=== PATIENT | female | born 1955 | race African-American/Black ===

== ENCOUNTER 2016-10-03 00:39 | Inpatient (IN) | payer BC, OTHER ==
[2016-10-03] VITALS (76 sets, daily range): BP systolic 85–171; BP diastolic 49–103
[~2016-10-03] VITALS: Ht 167.6 cm; Wt 108.0 kg
[2016-10-03] MEDS ORDERED: SUCCINYLCHOLINE CHLORIDE 200MG/10ML VIAL IV ONE ×2 (00:45→13:54)
[2016-10-03] MEDS ORDERED: ETOMIDATE 2MG/ML 10ML VIAL IV ONE ×2 (00:45→13:54)
[2016-10-03] MEDS ORDERED: FUROSEMIDE 40MG/4ML VIAL IV STA (00:45)
[2016-10-03] MEDS ORDERED: PROPOFOL 10MG/ML 100ML 100 ML IV ONE ×2 (00:45→04:00)
[2016-10-03 01:42] LABS: BG BASE EXCESS -2.5 mmol/L (-2.0-2.0); BG CARBOXYHEMOGLOBIN 0.7 % (0.5-1.5); BG DEOXYHEMOGLOBIN 3.1 % (0.0-5.0); BG FRACTION INSPIRED OXYGEN 50; BG METHEMOGLOBIN 0.3 % (0.0-1.5); BG OXYGEN SATURATION 96.9 % (92.0-98.5); BG OXYHEMOGLOBIN 95.9 % (94.0-97.0); BG PCO2 61.3 mmHg (35.0-45.0); BG PH 7.245 (7.350-7.450); BG SAMPLE SITE RIGHT RADIAL; BG TIDAL VOLUME(mL) 600 mL; BG TOTAL HEMOGLOBIN 13.8 g/dL (12.0-18.0); BG VENT MODE VENT - A/C; BG VENT RATE 12 set
[2016-10-03 01:42] LABS: BASOPHILS % 0.8 % (0.0-2.0); EOSINOPHILS % 2.6 % (0.0-5.0); HEMATOCRIT. 39.1 % (36.0-48.0); HEMOGLOBIN. 13.3 g/dL (12.0-16.0); LYMPHOCYTES % 19.1 % (20.0-50.0); MEAN CORPUSCULAR HEMOGLOBIN 29.6 pg (28.0-32.0); MEAN CORPUSCULAR HGB CONC 34.1 g/dL (31.0-37.0); MEAN CORPUSCULAR VOLUME 86.9 fL (81.0-99.0); MEAN PLATELET VOLUME 10.4 fl (7.4-10.4); MONOCYTES % 5.4 % (2.0-8.0); NEUTROPHILS % 72.1 % (40.0-76.0); PLATELET 234 x1000/uL (130-400); RED CELL DISTRIBUTION WIDTH 14.5 % (11.6-14.6); WHITE BLOOD COUNT 9.6 x1000/uL (4.5-11.0)
[2016-10-03 01:46] LABS: PROTHROMBIN TIME 10.1 sec
[2016-10-03 01:56] LABS: ALANINE AMINOTRANSFERASE 18 IU/L (13-61); ALBUMIN 2.9 g/dL (3.4-5.0); ANION GAP 10; CALCIUM 8.1 mg/dL (8.5-10.1); CARBON DIOXIDE 28 mEq/L (21-32); CHLORIDE 102 mEq/L (98-107); INDEX HEMOLYSI 1 (1-3); INDEX ICTERIC 1 (1-4); INDEX LIPEMIC 1 (1-3); NT PRO B-TYPE NATRIURETIC PEP 2200 pg/mL (5-125); TROPONIN I < 0.02 ng/mL (0.00-0.04); UREA NITROGEN BLOOD 23 mg/dL (7-21); eGFR > 60 mL/min (>60)
[2016-10-03] MEDS ORDERED: ACETAMINOPHEN 650MG SUPP PR PRN (02:00)
[2016-10-03] MEDS ORDERED: MAGNESIUM/ALUMINUM HYDROXIDE/SIMETHICONE 30ML UDC PO PRN (02:00)
[2016-10-03] MEDS ORDERED: DOCUSATE SODIUM 100MG CAPSULE PO PRN (02:00)
[2016-10-03] MEDS ORDERED: ACETAMINOPHEN 325MG TABLET PO PRN (02:00)
[2016-10-03] MEDS ORDERED: CLONIDINE 0.1MG TABLET PO PRN (02:00)
[2016-10-03] MEDS ORDERED: ACETAMINOPHEN 650MG/20.3ML UDC GT PRN (02:00)
[2016-10-03] MEDS ORDERED: NA PHOS,M-B/NA PHOS,DI-BA ENEMA 118ML PR PRN (02:00)
[2016-10-03] MEDS ORDERED: DIPHENHYDRAMINE 50MG/ML VIAL IV PRN (02:00)
[2016-10-03] MEDS ORDERED: LORAZEPAM 2MG/ML CPJ IV PRN (02:00)
[2016-10-03] MEDS ORDERED: GUAIFENESIN 200MG/10ML SUGAR FREE UDC PO PRN (02:00)
[2016-10-03] MEDS ORDERED: IPRATROPIUM/ALBUTEROL 0.5-3(2.5)MG/3ML NEB INH PRN (02:00)
[2016-10-03] MEDS ORDERED: ONDANSETRON HCL 4MG/2ML VIAL IV PRN (02:00)
[2016-10-03] MEDS ORDERED: DEXTROSE 50% WATER 50ML SYRINGE IV PRN (02:15)
[2016-10-03 02:36] LABS: THYROID STIMULATING HORMONE 6.4 uIU/mL (0.36-3.74)
[2016-10-03] MEDS: LEVOFLOXACIN 500MG PREMIX 100 ML IV SCH (05:33)
[2016-10-03] MEDS: BLOOD SUGAR DIAGNOSTIC STRIP TEST SCH ×4 (05:36→23:54)
[2016-10-03] MEDS: SODIUM CHLORIDE 0.9% INJ 3ML FLUSH IVF SCH ×3 (05:45→21:45)
[2016-10-03] MEDS: INSULIN LISPRO 100 UNITS/ML SUBCUT SCH ×4 (05:49→23:52)
[2016-10-03 05:56] LABS: CLARITY URINE CLEAR (CLEAR); COLOR URINE YELLOW (YELLOW); GLUCOSE URINE NEGATIVE (NEGATIVE); KETONES URINE NEGATIVE (NEGATIVE); LEUKOCYTE ESTERASE URINE NEGATIVE (NEGATIVE); NITRITE URINE NEGATIVE (NEGATIVE); OCCULT BLOOD URINE TRACE (NEGATIVE); PROTEIN URINE 1+ (NEGATIVE); SPECIFIC GRAVITY URINE 1.016 (1.005-1.030); UROBILINOGEN URINE 0.2 E.U./dL (0.2-1.0)
[2016-10-03] MEDS ORDERED: METHYLPREDNISOLONE SOD SUCC 125 MG/2 ML VIAL IV SCH (06:00)
[2016-10-03] MEDS ORDERED: IPRATROPIUM/ALBUTEROL 0.5-3(2.5)MG/3ML NEB INH SCH (06:00)
[2016-10-03] MEDS ORDERED: VANCOMYCIN 2,000 MG in DEXT 5% WATER 500 ML IV NR (06:00)
[2016-10-03 06:06] LABS: TROPONIN I 0.04 ng/mL (0.00-0.04)
[2016-10-03 06:12] LABS: *AMPHETAMINES SCREEN URINE NEGATIVE (NEGATIVE); *BARBITURATES SCREEN URINE NEGATIVE (NEGATIVE); *BENZODIAZEPINES SCREEN URINE NEGATIVE (NEGATIVE); *COCAINE SCREEN URINE NEGATIVE (NEGATIVE); CANNABINOID URINE SCREEN NEGATIVE (NEGATIVE); ECSTASY MDMA SCREEN URINE NEGATIVE (NEGATIVE); METHADONE URINE SCREEN NEGATIVE (NEGATIVE); OPIATES URINE SCREEN NEGATIVE (NEGATIVE); PHENCYCLIDINE URINE SCREEN NEGATIVE (NEGATIVE)
[2016-10-03 06:40] LABS: SQUAMOUS EPITHELIAL CELL URINE NONE SEEN /lpf (RARE/1+)
[2016-10-03 06:44] LABS: RBC URINE 0-2 /hpf (0-2)
[2016-10-03 06:45] LABS: BACTERIA URINE NONE SEEN
[2016-10-03 07:14] LABS: BG BASE EXCESS 2.5 mmol/L (-2.0-2.0); BG CARBOXYHEMOGLOBIN 0.4 % (0.5-1.5); BG DEOXYHEMOGLOBIN 1.3 % (0.0-5.0); BG METHEMOGLOBIN 0.2 % (0.0-1.5); BG OXYGEN SATURATION 98.7 % (92.0-98.5); BG OXYHEMOGLOBIN 98.1 % (94.0-97.0); BG PH 7.511 (7.350-7.450); BG PO2 138.8 mmHg (75.0-100.0); BG SAMPLE SITE RIGHT RADIAL; BG TIDAL VOLUME(mL) 600 mL; BG TOTAL HEMOGLOBIN 12.8 g/dL (12.0-18.0); BG VENT MODE VENT - A/C; BG VENT RATE 14 set
[2016-10-03] MEDS: BUDESONIDE 0.5MG/2ML NEB HHN SCH ×2 (07:48→20:40)
[2016-10-03] MEDS: IPRATROPIUM/ALBUTEROL 0.5-3(2.5)MG/3ML NEB HHN SCH ×5 (07:48→23:57)
[2016-10-03] MEDS ORDERED: BLOOD SUGAR DIAGNOSTIC STRIP TEST SCH (07:50)
[2016-10-03] MEDS ORDERED: POTASSIUM CHLORIDE INJ 40 MEQ in DEXT 5% WATER 500 ML IV NR (08:00)
[2016-10-03] MEDS: HYDROMORPHONE HCL/PF 2MG/ML CPJ IV PRN ×4 (08:05→21:47)
[2016-10-03] MEDS: ENOXAPARIN 30MG/0.3ML SYR SUBCUT SCH ×2 (08:08→21:03)
[2016-10-03] MEDS ORDERED: INSULIN LISPRO 100 UNITS/ML SUBCUT SCH ×2 (08:20→13:20)
[2016-10-03] MEDS ORDERED: FUROSEMIDE 40MG/4ML VIAL IV SCH ×2 (09:00→17:00)
[2016-10-03] MEDS: PROPOFOL 10MG/ML 100ML 100 ML IV PRN ×4 (09:34→21:46)
[2016-10-03] MEDS: METOPROLOL TARTRATE 50MG TABLET PO SCH ×2 (10:42→21:00)
[2016-10-03] MEDS: ASPIRIN 81MG TABLET PO SCH (10:43)
[2016-10-03] MEDS ORDERED: ENOXAPARIN 30MG/0.3ML SYR SUBCUT SCH (11:00)
[2016-10-03] MEDS: PANTOPRAZOLE SODIUM 40 MG/VIAL IV SCH (11:45)
[2016-10-03 11:55] LABS: MAGNESIUM 1.4 mg/dL (1.8-2.4); T4 FREE 1.28 ng/dL (0.76-1.46)
[2016-10-03] MEDS ORDERED: MAGNESIUM 2 G PREMIX 50 ML IV NR (14:00)
[2016-10-03] MEDS ORDERED: IOHEXOL-350 100 ML BOTTLE ONE (14:10)
[2016-10-03] MEDS ORDERED: SODIUM CHLORIDE 0.9% 10ML VIAL ONE (14:10)
[2016-10-03 15:59] LABS: CREATINE KINASE MB FRACTION 0.9 ng/mL (0.5-3.6); TROPONIN I 0.03 ng/mL (0.00-0.04)
[2016-10-03] MEDS ORDERED: VANCOMYCIN 1 G PREMIX 200 ML IV SCH (23:00)
[2016-10-04] VITALS (84 sets, daily range): BP systolic 93–161; BP diastolic 31–110
[2016-10-04] MEDS: IPRATROPIUM/ALBUTEROL 0.5-3(2.5)MG/3ML NEB HHN SCH ×3 (04:19→20:58)
[2016-10-04] MEDS: PROPOFOL 10MG/ML 100ML 100 ML IV PRN ×3 (04:24→09:36)
[2016-10-04] MEDS: LEVOFLOXACIN 500MG PREMIX 100 ML IV SCH (04:56)
[2016-10-04] MEDS: HYDROMORPHONE HCL/PF 2MG/ML CPJ IV PRN ×2 (04:57→08:33)
[2016-10-04] MEDS: BLOOD SUGAR DIAGNOSTIC STRIP TEST SCH ×4 (05:21→21:53)
[2016-10-04] MEDS: INSULIN LISPRO 100 UNITS/ML SUBCUT SCH ×4 (05:33→21:50)
[2016-10-04 05:38] LABS: BASOPHILS % 0.3 % (0.0-2.0); EOSINOPHILS % 0.3 % (0.0-5.0); HEMATOCRIT. 37.2 % (36.0-48.0); HEMOGLOBIN. 12.6 g/dL (12.0-16.0); LYMPHOCYTES % 13.7 % (20.0-50.0); MEAN CORPUSCULAR HEMOGLOBIN 29.4 pg (28.0-32.0); MEAN CORPUSCULAR HGB CONC 33.8 g/dL (31.0-37.0); MEAN PLATELET VOLUME 10.7 fl (7.4-10.4); MONOCYTES % 10.4 % (2.0-8.0); NEUTROPHILS % 75.3 % (40.0-76.0); PLATELET 221 x1000/uL (130-400); RED BLOOD CELL COUNT 4.28 mill/uL (4.2-5.4); RED CELL DISTRIBUTION WIDTH 14.2 % (11.6-14.6)
[2016-10-04 05:55] LABS: ALANINE AMINOTRANSFERASE 19 IU/L (13-61); ALBUMIN 2.9 g/dL (3.4-5.0); ANION GAP 16; BILIRUBIN DIRECT 0.1 mg/dL (0.0-0.2); CALCIUM 9.4 mg/dL (8.5-10.1); CARBON DIOXIDE 32 mEq/L (21-32); CHLORIDE 98 mEq/L (98-107); CREATINE KINASE MB FRACTION 0.7 ng/mL (0.5-3.6); HDL CHOLESTEROL 71 mg/dL (40-59); INDEX HEMOLYSI 1 (1-3); INDEX ICTERIC 1 (1-4); INDEX LIPEMIC 1 (1-3); LDL CHOLESTEROL 86 mg/dL (5-100); MAGNESIUM 2.3 mg/dL (1.8-2.4); TRIGLYCERIDE 89 mg/dL (0-150); TROPONIN I 0.03 ng/mL (0.00-0.04); UREA NITROGEN BLOOD 27 mg/dL (7-21); eGFR 37 mL/min (>60)
[2016-10-04] MEDS ORDERED: INSULIN LISPRO 100 UNITS/ML SUBCUT SCH (06:00)
[2016-10-04] MEDS ORDERED: VANCOMYCIN 1500MG in DEXTROSE 5% WATER 250ML IV SCH (06:00)
[2016-10-04 07:12] LABS: BG BASE EXCESS 2.9 mmol/L (-2.0-2.0); BG CARBOXYHEMOGLOBIN 0.1 % (0.5-1.5); BG DEOXYHEMOGLOBIN 2.1 % (0.0-5.0); BG FRACTION INSPIRED OXYGEN 40; BG HCO3 ACT 28.3 mmol/L (22.0-26.0); BG METHEMOGLOBIN 1.1 % (0.0-1.5); BG OXYGEN SATURATION 97.9 % (92.0-98.5); BG OXYHEMOGLOBIN 96.7 % (94.0-97.0); BG PCO2 46.3 mmHg (35.0-45.0); BG PH 7.404 (7.350-7.450); BG PO2 134.6 mmHg (75.0-100.0); BG SAMPLE SITE RIGHT RADIAL; BG TIDAL VOLUME(mL) 550 mL; BG TOTAL HEMOGLOBIN 14.3 g/dL (12.0-18.0); BG VENT MODE VENT - A/C; BG VENT RATE 10 set
[2016-10-04] MEDS: METHYLPREDNISOLONE SOD SUCC 40 MG/ML VIAL IV SCH (08:17)
[2016-10-04] MEDS: PANTOPRAZOLE SODIUM 40 MG/VIAL IV SCH (08:17)
[2016-10-04] MEDS: METOPROLOL TARTRATE 50MG TABLET PO SCH ×2 (08:18→21:43)
[2016-10-04] MEDS: ASPIRIN 81MG TABLET PO SCH (08:18)
[2016-10-04] MEDS: ENOXAPARIN 30MG/0.3ML SYR SUBCUT SCH ×2 (08:21→21:41)
[2016-10-04] MEDS: BUDESONIDE 0.5MG/2ML NEB HHN SCH ×2 (09:49→20:58)
[2016-10-04] MEDS: FUROSEMIDE 40MG/4ML VIAL IV SCH (10:44)
[2016-10-04] MEDS ORDERED: POTASSIUM CHLORIDE INJ 40 MEQ in DEXT 5% WATER 250 ML IV NR (11:00)
[2016-10-04 12:16] LABS: BG BASE EXCESS 3.8 mmol/L (-2.0-2.0); BG CARBOXYHEMOGLOBIN 0.6 % (0.5-1.5); BG DEOXYHEMOGLOBIN 1.8 % (0.0-5.0); BG FRACTION INSPIRED OXYGEN 40; BG HCO3 ACT 30.9 mmol/L (22.0-26.0); BG METHEMOGLOBIN 0.4 % (0.0-1.5); BG OXYGEN SATURATION 98.2 % (92.0-98.5); BG OXYHEMOGLOBIN 97.2 % (94.0-97.0); BG PCO2 57.7 mmHg (35.0-45.0); BG PH 7.347 (7.350-7.450); BG PO2 132.7 mmHg (75.0-100.0); BG PRESSURE SUPPORT 6; BG SAMPLE SITE LEFT RADIAL; BG TOTAL HEMOGLOBIN 13.6 g/dL (12.0-18.0); BG VENT MODE VENT - CPAP
[2016-10-04 13:31] LABS: BG BASE EXCESS 2.5 mmol/L (-2.0-2.0); BG DEOXYHEMOGLOBIN 0.9 % (0.0-5.0); BG FRACTION INSPIRED OXYGEN 40; BG HCO3 ACT 29.4 mmol/L (22.0-26.0); BG METHEMOGLOBIN 0.4 % (0.0-1.5); BG OXYGEN SATURATION 99.1 % (92.0-98.5); BG OXYHEMOGLOBIN 98.7 % (94.0-97.0); BG PCO2 55.2 mmHg (35.0-45.0); BG PH 7.344 (7.350-7.450); BG PO2 230.4 mmHg (75.0-100.0); BG PRESSURE SUPPORT 6; BG SAMPLE SITE LEFT RADIAL; BG TOTAL HEMOGLOBIN 13.5 g/dL (12.0-18.0); BG VENT MODE VENT - CPAP
[2016-10-04] MEDS: SODIUM CHLORIDE 0.9% INJ 3ML FLUSH IVF SCH ×2 (14:00→21:54)
[2016-10-05] VITALS (23 sets, daily range): BP systolic 109–157; BP diastolic 51–83
[2016-10-05] MEDS: IPRATROPIUM/ALBUTEROL 0.5-3(2.5)MG/3ML NEB HHN SCH ×6 (00:24→21:37)
[2016-10-05] MEDS ORDERED: LIDOCAINE HCL/PF 1% 2ML VIAL ONE (05:00)
[2016-10-05] MEDS: SODIUM CHLORIDE 0.9% INJ 3ML FLUSH IVF SCH ×3 (05:53→21:37)
[2016-10-05 07:44] LABS: BG BASE EXCESS 5.2 mmol/L (-2.0-2.0); BG CARBOXYHEMOGLOBIN 0.4 % (0.5-1.5); BG DEOXYHEMOGLOBIN 7.4 % (0.0-5.0); BG FRACTION INSPIRED OXYGEN 21; BG HCO3 ACT 30.8 mmol/L (22.0-26.0); BG METHEMOGLOBIN 0.1 % (0.0-1.5); BG OXYGEN SATURATION 92.6 % (92.0-98.5); BG OXYHEMOGLOBIN 92.1 % (94.0-97.0); BG PCO2 49.3 mmHg (35.0-45.0); BG PH 7.414 (7.350-7.450); BG PO2 66.8 mmHg (75.0-100.0); BG SAMPLE SITE RIGHT BRACHIAL; BG TOTAL HEMOGLOBIN 13.3 g/dL (12.0-18.0); BG VENT MODE ROOM AIR
[2016-10-05] MEDS: BUDESONIDE 0.5MG/2ML NEB HHN SCH ×2 (07:50→21:37)
[2016-10-05] MEDS: INSULIN LISPRO 100 UNITS/ML SUBCUT SCH ×4 (07:50→21:29)
[2016-10-05] MEDS: BLOOD SUGAR DIAGNOSTIC STRIP TEST SCH ×4 (07:50→21:30)
[2016-10-05] MEDS ORDERED: LEVOFLOXACIN 500MG PREMIX 100 ML IV SCH (08:00)
[2016-10-05] MEDS: METOPROLOL TARTRATE 50MG TABLET PO SCH ×2 (09:05→21:29)
[2016-10-05] MEDS: FUROSEMIDE 40MG/4ML VIAL IV SCH (09:06)
[2016-10-05] MEDS: ASPIRIN 81MG TABLET PO SCH (09:06)
[2016-10-05] MEDS: METHYLPREDNISOLONE SOD SUCC 40 MG/ML VIAL IV SCH (09:06)
[2016-10-05] MEDS: ENOXAPARIN 30MG/0.3ML SYR SUBCUT SCH ×2 (09:07→21:30)
[2016-10-05] MEDS: PANTOPRAZOLE SODIUM 40 MG/VIAL IV SCH (09:07)
[2016-10-05 10:03] LABS: CALCIUM 9.1 mg/dL (8.5-10.1); MAGNESIUM 2.1 mg/dL (1.8-2.4)
[2016-10-05] MEDS ORDERED: VANCOMYCIN 1 G PREMIX 200 ML IV SCH (11:00)
[2016-10-05] MEDS: LEVOFLOXACIN 500MG TABLET PO SCH (13:11)
[2016-10-05] MEDS ORDERED: METO50TA5 PO (15:05)
[2016-10-05] MEDS ORDERED: ASPI81TA2 PO (15:05)
[2016-10-05] MEDS ORDERED: FURO-151 PO (15:05)
[2016-10-05] MEDS: LOSARTAN POTASSIUM 25 MG TABLET PO SCH (19:01)
[2016-10-06 04:00] VITALS: BP 132/77
[2016-10-06 05:48] LABS: BASOPHILS % 0.2 % (0.0-2.0); EOSINOPHILS % 0.4 % (0.0-5.0); HEMATOCRIT. 36.1 % (36.0-48.0); HEMOGLOBIN. 12.6 g/dL (12.0-16.0); LYMPHOCYTES % 17.6 % (20.0-50.0); MEAN CORPUSCULAR HEMOGLOBIN 29.6 pg (28.0-32.0); MEAN CORPUSCULAR HGB CONC 34.8 g/dL (31.0-37.0); MEAN CORPUSCULAR VOLUME 85.1 fL (81.0-99.0); MEAN PLATELET VOLUME 10.5 fl (7.4-10.4); MONOCYTES % 9.7 % (2.0-8.0); NEUTROPHILS % 72.1 % (40.0-76.0); PLATELET 220 x1000/uL (130-400); RED BLOOD CELL COUNT 4.24 mill/uL (4.2-5.4); RED CELL DISTRIBUTION WIDTH 14.6 % (11.6-14.6); WHITE BLOOD COUNT 9.3 x1000/uL (4.5-11.0)
[2016-10-06] MEDS: SODIUM CHLORIDE 0.9% INJ 3ML FLUSH IVF SCH ×2 (06:04→14:44)
[2016-10-06] MEDS: IPRATROPIUM/ALBUTEROL 0.5-3(2.5)MG/3ML NEB HHN SCH ×4 (06:05→16:15)
[2016-10-06 06:10] LABS: CALCIUM 9.1 mg/dL (8.5-10.1)
[2016-10-06] MEDS: BLOOD SUGAR DIAGNOSTIC STRIP TEST SCH ×3 (06:24→17:30)
[2016-10-06] MEDS: INSULIN LISPRO 100 UNITS/ML SUBCUT SCH ×3 (07:20→17:40)
[2016-10-06] MEDS ORDERED: OMEPRAZOLE 20MG CAPSULE EXTENDED RELEASE PO SCH (07:20)
[2016-10-06] MEDS: BUDESONIDE 0.5MG/2ML NEB HHN SCH (08:32)
[2016-10-06 08:47] VITALS: BP 132/80
[2016-10-06] MEDS ORDERED: PREDNISONE 20MG TABLET PO SCH (09:00)
[2016-10-06] MEDS: FUROSEMIDE 40MG/4ML VIAL IV SCH (09:00)
[2016-10-06] MEDS: ENOXAPARIN 30MG/0.3ML SYR SUBCUT SCH (09:00)
[2016-10-06] MEDS: ASPIRIN 81MG TABLET PO SCH (09:02)
[2016-10-06] MEDS: LOSARTAN POTASSIUM 25 MG TABLET PO SCH (09:03)
[2016-10-06] MEDS: METOPROLOL TARTRATE 50MG TABLET PO SCH (09:04)
[2016-10-06] MEDS ORDERED: VANCOMYCIN 1 G PREMIX 200 ML IV SCH (11:00)
[2016-10-06] MEDS: LEVOFLOXACIN 500MG TABLET PO SCH (11:48)
[2016-10-06 12:00] VITALS: BP 126/78
[2016-10-06 16:00] VITALS: BP 117/78
[2016-10-06 17:46] VITALS: BP 117/80
== END 2016-10-06 18:35 | disposition home or self-care (01) | DRG 208 ==
LOC: ER 00:40 → CVICU 01:33 → 6WST 10-05 21:16
PROVIDERS: ADMIT Family Medicine; ATTEND Family Medicine
PROC: 0BH17EZ Insertion of Endotracheal Airway into Trachea, Via Natural or Artificial Opening (ICD-10-PCS; principal; 2016-10-03)
PROC: 5A1945Z Respiratory Ventilation, 24-96 Consecutive Hours (ICD-10-PCS; 2016-10-03)
DX: J96.01 Acute respiratory failure with hypoxia (principal); E43 Unspecified severe protein-calorie malnutrition; G93.40 Encephalopathy, unspecified; I50.41 Acute combined systolic (congestive) and diastolic (congestive) heart failure; N17.9 Acute kidney failure, unspecified; I42.9 Cardiomyopathy, unspecified; I11.0 Hypertensive heart disease with heart failure; J96.02 Acute respiratory failure with hypercapnia; R91.1 Solitary pulmonary nodule; E11.9 Type 2 diabetes mellitus without complications; E66.9 Obesity, unspecified; E87.6 Hypokalemia; I25.10 Atherosclerotic heart disease of native coronary artery without angina pectoris; E78.5 Hyperlipidemia, unspecified; Z95.1 Presence of aortocoronary bypass graft; Z68.38 Body mass index [BMI] 38.0-38.9, adult; Z98.84 Bariatric surgery status
CPT/HCPCS: 31500; 36415; 36600; 71010; 71275; 80048; 80053; 80061; 80076; 80202; 80305; 81001; 82248; 82375; 82550; 82553; 82805; 82962; 83036; 83605; 83735; 83880; 84439; 84443; 84478; 84484; 85025; 85379; 85610; 87040; 87070; 93005; 93306; 93970; 94002; 94003; 94640; 94664; 96374; 97116; 97162; 99285; A4216; A6261; C9113; J0330; J1170; J1650; J1815; J1940; J1956; J2060; J2704; J2920; J2930; J3370; J3475; J3480; J3490; J7040; J7060; J7512; J7620; J7626; Q9967